=== PATIENT | male | born 1955 | race Caucasian/White ===

== ENCOUNTER 2023-04-14 06:06 | Day surgery (SDC) | payer MEDICARE, BC ==
[2023-04-12 13:28] VITALS: BMI 32.1
[~2023-04-14 06:06] MED LIST: EPINEPHrine 0.3 MG in Ophthalmic Irrigation Solution 500 ML IRR SCH
[2023-04-14] MEDS ORDERED: PHENYLephrine 2.5% Ophth Soln 15 ml Bottle ONE (06:38)
[2023-04-14] MEDS ORDERED: Cyclopentolate 1% Opth Drop 2 ML BOT ONE (06:39)
[2023-04-14] MEDS ORDERED: Lidocaine 1% PF 5 ML VIAL ONE (06:54)
[2023-04-14] MEDS ORDERED: PROPOFOL 20 ML ONE (06:54)
[2023-04-14] MEDS ORDERED: Midazolam HCl 2 mg/2 ml Vial ONE ×2 (06:54→07:18)
[2023-04-14] MEDS ORDERED: fentaNYL 50 mcg/mL 1 mL Vial ONE ×2 (06:54→07:18)
[2023-04-14] MEDS ORDERED: Bupivacaine 0.75% 10 ML VIAL ONE (07:12)
[2023-04-14] MEDS ORDERED: Maxitrol 0.1% Opth Oint 3.5 GM TUBE ONE (07:12)
[2023-04-14] MEDS ORDERED: Lidocaine 4% PF 5 ML AMP ONE (07:12)
[2023-04-14] MEDS ORDERED: CEFAZOLIN 1 GM VIAL ONE (07:12)
[2023-04-14] MEDS ORDERED: Dexamethasone 4 mg/ml Vial ONE (07:29)
== END 2023-04-14 08:23 | disposition home or self-care (01) ==
LOC: SDC 06:06
PROVIDERS: ATTEND Ophthalmology Retina Specialist
PROC: 08T53ZZ Resection of Left Vitreous, Percutaneous Approach (ICD-10-PCS; principal; 2023-04-14)
DX: H43.312 Vitreous membranes and strands, left eye (principal); Z88.8 Allergy status to other drugs, medicaments and biological substances
CPT/HCPCS: 67041; J3010; J0171; J0690; J1100; J2250; J2704; J3490

== ENCOUNTER 2023-05-12 05:54 | Day surgery (SDC) | payer MEDICARE, BC ==
[2023-05-11 13:20] VITALS: BMI 31.4
[2023-05-12] MEDS ORDERED: Cyclopentolate 1% Opth Drop 2 ML BOT ONE (06:29)
[2023-05-12] MEDS ORDERED: PHENYLephrine 2.5% Ophth Soln 15 ml Bottle ONE (06:29)
[2023-05-12] MEDS ORDERED: PROPOFOL 20 ML ONE (06:57)
[2023-05-12] MEDS ORDERED: fentaNYL 50 mcg/mL 1 mL Vial ONE ×2 (06:58→07:10)
[2023-05-12] MEDS ORDERED: Midazolam HCl 2 mg/2 ml Vial ONE ×2 (06:58→07:17)
[2023-05-12] MEDS ORDERED: Lidocaine 4% PF 5 ML AMP ONE (07:09)
[2023-05-12] MEDS ORDERED: Bupivacaine 0.75% 10 ML VIAL ONE (07:09)
[2023-05-12] MEDS ORDERED: Lidocaine 1% PF 5 ML VIAL ONE (07:09)
[2023-05-12] MEDS ORDERED: CEFAZOLIN 1 GM VIAL ONE (07:09)
[2023-05-12] MEDS ORDERED: Dexamethasone 4 mg/ml Vial ONE (07:34)
[2023-05-12] MEDS ORDERED: Dexamethasone 0.7 MG IMPLANT ONE (07:35)
== END 2023-05-12 08:36 | disposition home or self-care (01) ==
LOC: SDC 05:54
PROVIDERS: ATTEND Ophthalmology Retina Specialist
PROC: 08T43ZZ Resection of Right Vitreous, Percutaneous Approach (ICD-10-PCS; principal; 2023-05-12)
DX: H43.311 Vitreous membranes and strands, right eye (principal); Z98.890 Other specified postprocedural states
CPT/HCPCS: 67041; J3010; J7312; J0171; J0690; J1100; J2250; J2704; J3490